=== PATIENT | female | born 1995 | race Caucasian/White ===

== ENCOUNTER 2018-12-11 12:52 | Emergency (ER) | payer MEDICAID ==
[~2018-12-11] VITALS: Ht 165.1 cm; Wt 68.0 kg
[2018-12-11 12:58] VITALS: BP 108/67
[2018-12-11] MEDS ORDERED: acetaminophen 325mg tablet PO ONE (14:10)
[2018-12-11] MEDS ORDERED: amoxicillin 250mg capsule PO ONE (14:10)
[2018-12-11] MEDS ORDERED: AMOX500C2 PO (14:13)
== END 2018-12-11 14:24 | disposition home or self-care (01) ==
LOC: ER 12:53
DX: K08.89 Other specified disorders of teeth and supporting structures (principal); Z79.899 Other long term (current) drug therapy
CPT/HCPCS: 99283

== ENCOUNTER 2018-12-31 04:33 | Inpatient (IN) | payer MEDICAID ==
[~2018-12-31] VITALS: Ht 165.1 cm; Wt 68.0 kg
[~2018-12-31 04:33] MED LIST: AMOX500C2 PO
[2018-12-31] MEDS ORDERED: normal saline 1000ML IV soln IV ONE (04:40)
[2018-12-31 05:28] LABS: BASOPHILS % (AUTO) 0.1 % (0-1); EOSINOPHILS # (AUTO) 0.7 X10'3 (0-0.9); EOSINOPHILS % (AUTO) 3.3 % (0-6); HEMATOCRIT 39.5 % (35.0-45.0); LYMPHOCYTES # (AUTO) 0.9 X10'3 (1.1-4.8); LYMPHOCYTES % (AUTO) 4.7 % (21-51); MEAN CORPUSCULAR VOLUME 96.8 FL (78-98); MEAN PLATELET VOLUME 8.9 FL (7.4-10.4); MONOCYTES # (AUTO) 0.7 X10'3 (0-0.9); MONOCYTES % (AUTO) 3.6 % (2-12); NEUTROPHILS # (AUTO) 17.3 X10'3 (1.8-7.7); NEUTROPHILS % (AUTO) 88.3 % (42-75); PLATELET COUNT 217 X10'3 (140-440); RED BLOOD COUNT 4.08 X10'6 (4.20-5.60); RED CELL DISTRIBUTION WIDTH 12.6 % (11.5-14.5); WHITE BLOOD COUNT 19.6 X10'3 (4.5-11.0)
--- NOTE | 2018-12-31 05:30 | NUR ---
PER MD GROSS- PT TITRATED DOWN ON - SHE IS CURRENTLY ON N\C @4LPM WITH O2 OF 94% PER MD FAIRBANKS, PT GIVEN INCINTIVE SPIROMETER AND EDUCATED ON HOW AND WHEN TO USE IT. SHE IS ABLE TO DO A RETURN DEMONSTRATION. FLUTTER VALVE HAS ALSO BEEN ORDERED THRU RT.
[2018-12-31] MEDS ORDERED: PREN1TAB75 PO (05:34)
[2018-12-31] MEDS ORDERED: LAMO100T89 PO (05:34)
[2018-12-31 05:36] LABS: ALANINE AMINOTRANSFERASE 14 U/L (12-78); ALBUMIN 2.5 G/DL (3.4-5.0); ALBUMIN/GLOBULIN RATIO 0.8 (1.1-1.5); ALKALINE PHOSPHATASE 44 IU/L (46-116); ANION GAP 10 (8-16); ASPARTATE AMINO TRANSFERASE 9 U/L (10-37); BILIRUBIN,TOTAL 0.3 MG/DL (0.1-1.0); BLOOD UREA NITROGEN 10 MG/DL (7-18); BUN/CREATININE RATIO 12.3 (6.6-38.0); CALCIUM 7.3 MG/DL (8.5-10.1); CHLORIDE 108 MMOL/L (99-107); CREATININE 0.81 MG/DL (0.40-0.90); GLUCOSE 113 MG/DL (70-104); MAGNESIUM 1.3 MG/DL (1.5-2.4); POTASSIUM 3.7 MMOL/L (3.5-5.1); SODIUM 139 MMOL/L (135-145); TOTAL CARBON DIOXIDE 21.1 MMOL/L (24-32); TOTAL PROTEIN 5.5 G/DL (6.4-8.2); eGFR 88 ML/MIN
[2018-12-31 05:43] LABS: INR 1.4 INR; PARTIAL THROMBOPLASTIN TIME 35 SECONDS (22-32); PROTHROMBIN TIME 14.4 SECONDS (9.0-12.0)
[2018-12-31] MEDS ORDERED: magnesium hydroxide 30ml (MOM) UD suspension PO PRN (05:50)
[2018-12-31] MEDS ORDERED: potassium Cl 20 mEq SR tablet PO PRN (05:50)
[2018-12-31] MEDS ORDERED: acetaminophen 325mg tablet PO PRN (05:50)
[2018-12-31] MEDS ORDERED: magnesium 2GM in 50ml NS 50 ML IV PRN (05:50)
[2018-12-31] MEDS ORDERED: magnesium 4gm in 100ml NS 100 ML IV PRN (05:50)
[2018-12-31] MEDS ORDERED: potassium Cl 40MEQ/NS 500ml 500 ML IV PRN ×2 (05:50)
[2018-12-31] MEDS ORDERED: magnesium Cl slow-release 64mg tablet PO PRN (05:50)
[2018-12-31] MEDS ORDERED: mag hydrox/Alum hydrox/simeth 30ml oral suspension PO PRN (05:50)
[2018-12-31] MEDS ORDERED: ondansetron/PF 4mg/2ml inj IV PRN (05:50)
[2018-12-31] MEDS ORDERED: ipratropium/albuterol 3ml nebule NEB PRN (05:50)
[2018-12-31] MEDS ORDERED: guaiFENesin 200 MG/10 ML oral syrup UD cup PO PRN (05:50)
[2018-12-31 06:48] LABS: NUCLEATED RED BLOOD CELLS 10 /100WBC (0-0); PLATELET ESTIMATE NORMAL; TOTAL CELLS COUNTED 100
[2018-12-31] MEDS: normal saline 1000ml 1,000 ML IV SCH ×2 (07:32→16:24)
[2018-12-31] MEDS: ipratropium/albuterol 3ml nebule NEB SCH ×3 (08:00→20:56)
[2018-12-31] MEDS ORDERED: CefTRIAXone 2gm/D5W 50ml 50 ML IV SCH (08:00)
[2018-12-31] MEDS: K and/or MAG REPLACEMENT MC SCH (08:00)
[2018-12-31] MEDS: PNV NO.63/IRON,CARBONYL/FA/DHA 1 EACH CAPSULE PO SCH (08:05)
[2018-12-31] MEDS: levoFLOXACIN-Levaquin 750MG/D5 150 ML IV SCH (08:13)
[2018-12-31] MEDS: CefTRIAXone/D5W-Rocephin 1gm 50 ML IV SCH (08:47)
[2018-12-31] MEDS: enoxaparin 40mg/0.4ml syringe SQ SCH (08:47)
[2018-12-31] MEDS: lactobacillus rhamnosus 10,000 MMU CELLS/CAPSULE PO SCH ×2 (08:48→19:58)
[2018-12-31] MEDS: guaiFENesin ER 600mg tablet PO SCH ×2 (08:48→19:58)
[2018-12-31] MEDS: lamoTRIgine 100mg tablet PO SCH ×2 (08:48→19:58)
[2018-12-31 10:00] VITALS: BP 101/54
--- NOTE | 2018-12-31 10:00 | NUR ---
Assumed pt care IVJ
[2018-12-31 11:11] VITALS: BP 94/50
[2018-12-31] MEDS: vancomycin/NS 1 GM ADD-VANTAGE 250 ML IV SCH ×2 (11:55→19:49)
[2018-12-31 12:56] LABS: URINE HCG NEGATIVE (NEG)
[2018-12-31 12:57] LABS: CLARITY,URINE CLEAR (Clear); COLOR,URINE YELLOW (Yellow); GLUCOSE, URINE >=1000 mg/dl (Neg); KETONES,URINE NEGATIVE (Neg); LEUKOCYTE ESTERASE ,URINE NEGATIVE (Neg); NITRITES, URINE NEGATIVE (Neg); OCCULT BLOOD,URINE NEGATIVE (Neg); PROTEIN,URINE NEGATIVE (Neg); UROBILINOGEN,URINE 0.2 E.U/dL (0.2-1.0)
[2018-12-31 12:58] LABS: UA COLLECTION TYPE CLN CATCH MIDSTREAM
[2018-12-31 13:04] LABS: SQUAMOUS EPITHELIAL CELL,UR MANY /LPF (FEW)
[2018-12-31 13:05] LABS: BACTERIA,URINE FEW /HPF (Neg); RBC,URINE NONE SEEN /HPF (0-2); WBC,URINE 0-4 /HPF (0-4)
[2018-12-31 15:15] VITALS: BP 97/46
[2018-12-31 18:00] VITALS: BP 104/58
--- NOTE | 2018-12-31 18:09 | NUR ---
Patient in room PCU 3028. I have received report from Renae ZUNIGA and had the opportunity to ask questions and assume patient care. pt eating dinner, [id number]
[2018-12-31 23:00] VITALS: BP 106/65
[2018-12-31] MEDS: acetaminophen 325mg tablet PO PRN (23:33)
[2019-01-01] MEDS: Melatonin 3mg tablet PO PRN ×2 (00:23→23:52)
[2019-01-01] MEDS: vancomycin/NS 1 GM ADD-VANTAGE 250 ML IV SCH ×2 (01:26→10:24)
[2019-01-01] MEDS: normal saline 1000ml 1,000 ML IV SCH ×3 (01:26→21:48)
[2019-01-01 03:00] VITALS: BP 110/55
[2019-01-01 05:58] LABS: BASOPHILS % (AUTO) 0.1 % (0-1); EOSINOPHILS # (AUTO) 1.3 X10'3 (0-0.9); HEMATOCRIT 33.2 % (35.0-45.0); HEMOGLOBIN 10.9 g/dl (12.0-16.0); LYMPHOCYTES # (AUTO) 1.8 X10'3 (1.1-4.8); LYMPHOCYTES % (AUTO) 10.8 % (21-51); MEAN CORPUSCULAR HEMOGLOBIN 32.2 PG (27.0-31.0); MEAN CORPUSCULAR HGB CONC 32.8 g/dL (33.0-36.5); MEAN CORPUSCULAR VOLUME 97.9 FL (78-98); MEAN PLATELET VOLUME 8.6 FL (7.4-10.4); MONOCYTES # (AUTO) 1.4 X10'3 (0-0.9); MONOCYTES % (AUTO) 8.5 % (2-12); NEUTROPHILS % (AUTO) 72.6 % (42-75); PLATELET COUNT 183 X10'3 (140-440); RED BLOOD COUNT 3.39 X10'6 (4.20-5.60); RED CELL DISTRIBUTION WIDTH 12.9 % (11.5-14.5); WHITE BLOOD COUNT 16.5 X10'3 (4.5-11.0)
[2019-01-01 06:03] LABS: ALBUMIN 2.5 G/DL (3.4-5.0); ANION GAP 6 (8-16); BLOOD UREA NITROGEN 7 MG/DL (7-18); BUN/CREATININE RATIO 9.5 (6.6-38.0); CALCIUM 8.1 MG/DL (8.5-10.1); CHLORIDE 111 MMOL/L (99-107); CREATININE 0.74 MG/DL (0.40-0.90); GLUCOSE 112 MG/DL (70-104); MAGNESIUM 1.8 MG/DL (1.5-2.4); POTASSIUM 3.6 MMOL/L (3.5-5.1); SODIUM 144 MMOL/L (135-145); TOTAL CARBON DIOXIDE 26.6 MMOL/L (24-32); eGFR > 90 ML/MIN
--- NOTE | 2019-01-01 06:29 | NUR ---
Patient in room PCU 3028. I have received report from [facility] and had the opportunity to ask questions and assume patient care.
[2019-01-01 06:30] VITALS: BP 104/69
--- NOTE | 2019-01-01 06:36 | NUR ---
Problems reprioritized. Patient report given, questions answered & plan of care reviewed with Fauzia ZUNIGA.
[2019-01-01] MEDS: K and/or MAG REPLACEMENT MC SCH (07:08)
[2019-01-01] MEDS: CefTRIAXone/D5W-Rocephin 1gm 50 ML IV SCH (07:09)
[2019-01-01] MEDS: levoFLOXACIN-Levaquin 750MG/D5 150 ML IV SCH (07:10)
[2019-01-01] MEDS: guaiFENesin ER 600mg tablet PO SCH ×2 (07:10→19:28)
[2019-01-01] MEDS: lactobacillus rhamnosus 10,000 MMU CELLS/CAPSULE PO SCH ×2 (07:10→19:28)
[2019-01-01] MEDS: PNV NO.63/IRON,CARBONYL/FA/DHA 1 EACH CAPSULE PO SCH (07:10)
[2019-01-01] MEDS: lamoTRIgine 100mg tablet PO SCH ×2 (07:10→19:28)
[2019-01-01] MEDS: enoxaparin 40mg/0.4ml syringe SQ SCH (07:10)
[2019-01-01] MEDS: ipratropium/albuterol 3ml nebule NEB SCH ×3 (08:46→20:25)
[2019-01-01] MEDS ORDERED: VANCOMYCIN LEVEL IV ONE (09:30)
[2019-01-01 11:30] VITALS: BP 102/56
[2019-01-01 15:30] VITALS: BP 124/55
[2019-01-01] MEDS: acetaminophen 325mg tablet PO PRN ×2 (16:01→23:46)
[2019-01-01] MEDS: vancomycin inj 1,250 MG in NS 250ml IV soln IV SCH (17:26)
[2019-01-01 18:00] VITALS: BP 108/66
--- NOTE | 2019-01-01 18:06 | NUR ---
Problems reprioritized. Patient report given, questions answered & plan of care reviewed with Gale.
--- NOTE | 2019-01-01 18:17 | NUR ---
Patient in room PCU 3028. I have received report from Fauzia ZUNIGA and had the opportunity to ask questions and assume patient care. pt eating dinner, AAO
[2019-01-01 23:00] VITALS: BP 101/48
[2019-01-02] MEDS: vancomycin inj 1,250 MG in NS 250ml IV soln IV SCH ×3 (01:22→19:09)
[2019-01-02 03:00] VITALS: BP 104/58
[2019-01-02 06:00] VITALS: BP 122/76
--- NOTE | 2019-01-02 06:22 | NUR ---
Patient in room PCU 3028. I have received report from NADIA Beasley and had the opportunity to ask questions and assume patient care. Pt sleeping, RR WNL, even, unlabored. No signs of distress.
--- NOTE | 2019-01-02 06:31 | NUR ---
Problems reprioritized. Patient report given, questions answered & plan of care reviewed with ROLY ZUNIGA.
[2019-01-02 06:42] LABS: BASOPHILS % (AUTO) 0.1 % (0-1); EOSINOPHILS # (AUTO) 1.2 X10'3 (0-0.9); EOSINOPHILS % (AUTO) 10.7 % (0-6); HEMATOCRIT 32.9 % (35.0-45.0); HEMOGLOBIN 11.1 g/dl (12.0-16.0); LYMPHOCYTES # (AUTO) 2.3 X10'3 (1.1-4.8); MEAN CORPUSCULAR HEMOGLOBIN 32.5 PG (27.0-31.0); MEAN CORPUSCULAR HGB CONC 33.8 g/dL (33.0-36.5); MEAN CORPUSCULAR VOLUME 96.1 FL (78-98); MEAN PLATELET VOLUME 8.5 FL (7.4-10.4); MONOCYTES # (AUTO) 1.1 X10'3 (0-0.9); MONOCYTES % (AUTO) 9.6 % (2-12); NEUTROPHILS # (AUTO) 6.5 X10'3 (1.8-7.7); NEUTROPHILS % (AUTO) 58.6 % (42-75); PLATELET COUNT 199 X10'3 (140-440); RED BLOOD COUNT 3.42 X10'6 (4.20-5.60); WHITE BLOOD COUNT 11.1 X10'3 (4.5-11.0)
[2019-01-02 06:50] LABS: ALBUMIN 2.5 G/DL (3.4-5.0); ANION GAP 6 (8-16); BLOOD UREA NITROGEN 9 MG/DL (7-18); CALCIUM 8.3 MG/DL (8.5-10.1); CHLORIDE 108 MMOL/L (99-107); CREATININE 0.75 MG/DL (0.40-0.90); GLUCOSE 93 MG/DL (70-104); MAGNESIUM 1.6 MG/DL (1.5-2.4); POTASSIUM 3.4 MMOL/L (3.5-5.1); SODIUM 142 MMOL/L (135-145); TOTAL CARBON DIOXIDE 27.6 MMOL/L (24-32); eGFR > 90 ML/MIN
[2019-01-02] MEDS: levoFLOXACIN-Levaquin 750MG/D5 150 ML IV SCH (07:21)
[2019-01-02] MEDS: acetaminophen 325mg tablet PO PRN ×3 (07:27→21:28)
[2019-01-02] MEDS: ipratropium/albuterol 3ml nebule NEB SCH ×3 (07:45→21:33)
[2019-01-02] MEDS: K and/or MAG REPLACEMENT MC SCH (08:00)
--- NOTE | 2019-01-02 08:37 | NUR ---
PAGER ID: [phone] MESSAGE: [phone] Brandon Patrick HR sustaining 130s x20 minutes. Please advise. NADIA Howard #[id number]
[2019-01-02] MEDS: lactobacillus rhamnosus 10,000 MMU CELLS/CAPSULE PO SCH ×2 (08:45→19:10)
[2019-01-02] MEDS: PNV NO.63/IRON,CARBONYL/FA/DHA 1 EACH CAPSULE PO SCH (08:45)
[2019-01-02] MEDS: potassium Cl 20 mEq SR tablet PO PRN ×3 (08:45→19:11)
[2019-01-02] MEDS: enoxaparin 40mg/0.4ml syringe SQ SCH (08:46)
[2019-01-02] MEDS: guaiFENesin ER 600mg tablet PO SCH ×2 (08:46→19:11)
[2019-01-02] MEDS: lamoTRIgine 100mg tablet PO SCH ×2 (08:46→19:11)
[2019-01-02] MEDS ORDERED: propranolol 10mg tablet PO ONE (09:30)
[2019-01-02] MEDS ORDERED: iohexol 350MG/ML 100ml bottle IV ONE (12:36)
--- NOTE | 2019-01-02 12:41 | NUR ---
Pt transported to CT in stable condition via WC with NC @ 1L/min. Off floor at this time.
[2019-01-02] MEDS: lactose-reduced food (Ensure Enlive) - 237ml bottle PO SCH ×2 (13:00→18:00)
--- NOTE | 2019-01-02 13:00 | NUR ---
Pt returned to unit at this time, stable condition. Denies complaint. Bed is low/locked/SRx2, call light in reach. Will continue to monitor.
[2019-01-02] MEDS: normal saline 1000ml 1,000 ML IV SCH ×2 (13:28→17:48)
--- NOTE | 2019-01-02 14:45 | NUR ---
Pt moved from 3028A to 3013A per pt request due to roommate incompatibility in 3028. Pt states new room is an improvement, no further needs at this time. Bed linens changed. Bed is low/locked/SRx2, call light in reach. Will continue to monitor.
[2019-01-02 15:00] VITALS: BP 112/75
--- NOTE | 2019-01-02 17:00 | NUR ---
Pt SpO2 85-89% on room air, unable to maintain over that level, NC applied @1L/min, pt SpO2 up to 95%. Will notified NOC RN and see if patient can wean off O2 over the mine shifter.
[2019-01-02] MEDS ORDERED: VANCOMYCIN LEVEL IV ONE (17:30)
[2019-01-02 18:00] VITALS: BP 110/64
--- NOTE | 2019-01-02 18:19 | NUR ---
Problems reprioritized. Patient report given, questions answered & plan of care reviewed with NADIA Beasley.
[2019-01-02] MEDS: propranolol 10mg tablet PO SCH (19:17)
[2019-01-02] MEDS: Melatonin 3mg tablet PO PRN (21:28)
[2019-01-02 23:00] VITALS: BP 121/67
[2019-01-03] MEDS: vancomycin inj 1,250 MG in NS 250ml IV soln IV SCH ×2 (01:16→10:00)
[2019-01-03 03:00] VITALS: BP 105/63
[2019-01-03] MEDS ORDERED: potassium Cl 40MEQ/NS 500ml 500 ML IV PRN ×2 (04:10)
[2019-01-03] MEDS ORDERED: potassium Cl 20 mEq SR tablet PO PRN ×2 (04:10)
[2019-01-03 06:00] VITALS: BP 109/67
--- NOTE | 2019-01-03 06:12 | NUR ---
Problems reprioritized. Patient report given, questions answered & plan of care reviewed with Yanira ZUNIGA.
--- NOTE | 2019-01-03 06:31 | NUR ---
Patient in room PCU 3013. I have received report from NADIA PULLIAM and had the opportunity to ask questions and assume patient care.
[2019-01-03 06:34] LABS: BASOPHILS % (AUTO) 0.1 % (0-1); EOSINOPHILS # (AUTO) 1.7 X10'3 (0-0.9); EOSINOPHILS % (AUTO) 15.5 % (0-6); HEMATOCRIT 37.4 % (35.0-45.0); HEMOGLOBIN 12.4 g/dl (12.0-16.0); LYMPHOCYTES # (AUTO) 2.8 X10'3 (1.1-4.8); LYMPHOCYTES % (AUTO) 24.7 % (21-51); MEAN CORPUSCULAR VOLUME 96.9 FL (78-98); MEAN PLATELET VOLUME 8.4 FL (7.4-10.4); MONOCYTES % (AUTO) 9.1 % (2-12); NEUTROPHILS # (AUTO) 5.7 X10'3 (1.8-7.7); NEUTROPHILS % (AUTO) 50.6 % (42-75); PLATELET COUNT 252 X10'3 (140-440); RED BLOOD COUNT 3.86 X10'6 (4.20-5.60); RED CELL DISTRIBUTION WIDTH 12.8 % (11.5-14.5); WHITE BLOOD COUNT 11.3 X10'3 (4.5-11.0)
[2019-01-03 06:44] LABS: ALBUMIN 2.7 G/DL (3.4-5.0); ANION GAP 7 (8-16); BLOOD UREA NITROGEN 8 MG/DL (7-18); BUN/CREATININE RATIO 9.8 (6.6-38.0); CHLORIDE 105 MMOL/L (99-107); CREATININE 0.82 MG/DL (0.40-0.90); GLUCOSE 90 MG/DL (70-104); MAGNESIUM 1.7 MG/DL (1.5-2.4); POTASSIUM 3.9 MMOL/L (3.5-5.1); SODIUM 139 MMOL/L (135-145); TOTAL CARBON DIOXIDE 27.1 MMOL/L (24-32); eGFR 86 ML/MIN
[2019-01-03] MEDS: K and/or MAG REPLACEMENT MC SCH (08:00)
[2019-01-03] MEDS: lamoTRIgine 100mg tablet PO SCH (08:16)
[2019-01-03] MEDS: guaiFENesin ER 600mg tablet PO SCH (08:17)
[2019-01-03] MEDS: propranolol 10mg tablet PO SCH (08:17)
[2019-01-03] MEDS: lactobacillus rhamnosus 10,000 MMU CELLS/CAPSULE PO SCH (08:17)
[2019-01-03] MEDS: enoxaparin 40mg/0.4ml syringe SQ SCH (08:18)
[2019-01-03] MEDS: lactose-reduced food (Ensure Enlive) - 237ml bottle PO SCH (08:19)
[2019-01-03] MEDS: PNV NO.63/IRON,CARBONYL/FA/DHA 1 EACH CAPSULE PO SCH (09:14)
[2019-01-03] MEDS: ipratropium/albuterol 3ml nebule NEB SCH (09:35)
[2019-01-03] MEDS ORDERED: LEVO750T46 PO (09:41)
[2019-01-03] MEDS ORDERED: LACT1CAP26 PO (09:41)
[2019-01-03] MEDS ORDERED: GUAI100L97 PO (09:41)
[2019-01-03] MEDS ORDERED: PROP10TA10 PO (09:41)
[2019-01-03] MEDS ORDERED: ALBU8.5H8 IH (09:41)
[2019-01-03] MEDS ORDERED: MELA3TAB PO (09:41)
--- NOTE | 2019-01-03 10:29 | NUR ---
Patient has dc instructions ready but would like to wait for her mother (who will be her transport home) to return before discussing discharge instructions. Patient also requesting to have shower now. Will DC when mother arrives.
[2019-01-03] MEDS ORDERED: levoFLOXACIN 750MG TABLET PO SCH (11:00)
--- NOTE | 2019-01-03 11:19 | NUR ---
Discussed with patient and her mother discharge instructions and new prescriptions. Both verbalized understanding of teachings. Patient also state she will go back to [facility] to finish her rehabilitation because she would like to have custody of her 2 year old daughter again. Patient ready for dc and has all her belongings packed however she has not taken her shower yet and requested to have shower prior to dc. Patient in shower now.
--- NOTE | 2019-01-03 11:41 | NUR ---
Patient A&O and in no apparent distress. She is being dc'd with all personal belongings in a wheelchair accompanied by x1 staff and mother. Prescriptions called in to [facility] [address].
== END 2019-01-03 11:40 | disposition home or self-care (01) | DRG 720 ==
LOC: ER 04:33 → ED HOLD 05:48 → EDBEDREQ 08:54 → PCU 3S 10:18
PROVIDERS: ADMIT Hospitalist; ATTEND Family Medicine
DX: A41.9 Sepsis, unspecified organism (principal); J18.1 Lobar pneumonia, unspecified organism; F17.210 Nicotine dependence, cigarettes, uncomplicated; F41.9 Anxiety disorder, unspecified; G40.909 Epilepsy, unspecified, not intractable, without status epilepticus; F19.10 Other psychoactive substance abuse, uncomplicated; G47.00 Insomnia, unspecified; Z71.6 Tobacco abuse counseling; Z79.899 Other long term (current) drug therapy; Z79.2 Long term (current) use of antibiotics; Z80.3 Family history of malignant neoplasm of breast
CPT/HCPCS: 36415; 71045; 71275; 80048; 80053; 80202; 81001; 81025; 83605; 83735; 84145; 85025; 85610; 85730; 87040; 87070; 93005; 93306; 94640; 94760; 99285; G0378; J0696; J1650; J1956; J3370; J7030; Q9967

== ENCOUNTER 2021-02-06 10:18 | Emergency (ER) | payer MEDICAID ==
[~2021-02-06] VITALS: Ht 165.1 cm; Wt 65.0 kg
[~2021-02-06 10:18] MED LIST changes: +ALBU8.5H8 IH; -AMOX500C2 PO; +GUAI100L97 PO; +LACT1CAP26 PO; +LAMO100T PO; +LEVO750T46 PO; +MELA3TAB39 PO; +PREN1TAB75 PO; +PROP10TA10 PO
[2021-02-06 10:25] VITALS: BP 129/68
[2021-02-06] MEDS ORDERED: CLIN300C70 PO (10:56)
[2021-02-06] MEDS ORDERED: IBUP-1984 PO (10:56)
== END 2021-02-06 11:10 | disposition home or self-care (01) ==
LOC: ER 10:18
DX: K08.89 Other specified disorders of teeth and supporting structures (principal); M25.562 Pain in left knee; Z86.69 Personal history of other diseases of the nervous system and sense organs; Z79.899 Other long term (current) drug therapy
CPT/HCPCS: 99283

== ENCOUNTER 2021-02-24 08:37 | Emergency (ER) | payer MEDICAID ==
[~2021-02-24] VITALS: Ht 165.1 cm; Wt 69.5 kg
[2021-02-24] MEDS ORDERED: METH4TAB81 PO (09:04)
[2021-02-24] MEDS ORDERED: HYDR-3965 PO (09:04)
[2021-02-24] MEDS ORDERED: AMOX500C2 PO (09:04)
[2021-02-24] MEDS ORDERED: ONDA4TAB6 PO (09:04)
[2021-02-24] MEDS ORDERED: acetaminophen 325mg tablet PO ONE (09:05)
[2021-02-24 09:25] VITALS: BP 112/74
== END 2021-02-24 09:31 | disposition home or self-care (01) ==
LOC: ER 08:38
DX: K04.7 Periapical abscess without sinus (principal); K02.9 Dental caries, unspecified; K04.1 Necrosis of pulp; Z86.69 Personal history of other diseases of the nervous system and sense organs; Z79.899 Other long term (current) drug therapy
CPT/HCPCS: 99283

== ENCOUNTER 2021-07-04 09:47 | Emergency (ER) | payer MEDICAID ==
[~2021-07-04] VITALS: Ht 165.1 cm; Wt 77.3 kg
[~2021-07-04 09:47] MED LIST changes: +ALBU8.5H17 IH; -ALBU8.5H8 IH; +METH4TAB81 PO; +ONDA4TAB6 PO
[2021-07-04 09:54] VITALS: BP 128/82
--- NOTE | 2021-07-04 10:34 | NUR ---
Patient seen and assessed by provider.
== END 2021-07-04 10:34 | disposition home or self-care (01) ==
LOC: ER 09:48
DX: R05.9 Cough, unspecified (principal); R50.9 Fever, unspecified; M79.10 Myalgia, unspecified site; Z20.822 Contact with and (suspected) exposure to COVID-19; Z88.8 Allergy status to other drugs, medicaments and biological substances; Z91.018 Allergy to other foods
CPT/HCPCS: 36415; 99283; U0003; U0005

== ENCOUNTER 2021-07-18 14:32 | Emergency (ER) | payer MEDICAID ==
[~2021-07-18] VITALS: Ht 165.1 cm; Wt 80.3 kg
[2021-07-18 14:50] VITALS: BP 143/75
[2021-07-18 15:18] LABS: CLARITY,URINE CLOUDY (Clear); COLOR,URINE YELLOW (Yellow); GLUCOSE, URINE NEGATIVE (Neg); KETONES,URINE NEGATIVE (Neg); PH,URINE 7.5 (4.8-8.0); PROTEIN,URINE NEGATIVE (Neg); UA COLLECTION TYPE CLN CATCH MIDSTREAM
[2021-07-18 15:19] LABS: LEUKOCYTE ESTERASE ,URINE NEGATIVE (Neg); NITRITES, URINE NEGATIVE (Neg); OCCULT BLOOD,URINE NEGATIVE (Neg); URINE HCG NEGATIVE (NEG); UROBILINOGEN,URINE 0.2 E.U/dL (0.2-1.0)
[2021-07-18 15:29] LABS: WBC,URINE NONE SEEN /HPF (0-4)
[2021-07-18 15:30] LABS: AMORPHOUS PHOSPHATES 3+; BACTERIA,URINE NONE SEEN /HPF (Neg); MUCUS STRANDS MANY /LPF (Neg); RBC,URINE NONE SEEN /HPF (0-2); SQUAMOUS EPITHELIAL CELL,UR MANY /LPF (FEW)
[2021-07-18] MEDS ORDERED: CYCL-1 PO (16:19)
[2021-07-18] MEDS ORDERED: NAPR-56 PO (16:19)
== END 2021-07-18 17:01 | disposition home or self-care (01) ==
LOC: ER 14:33
DX: S39.012A Strain of muscle, fascia and tendon of lower back, initial encounter (principal); Z86.69 Personal history of other diseases of the nervous system and sense organs; Z91.018 Allergy to other foods; Z79.2 Long term (current) use of antibiotics; Z79.899 Other long term (current) drug therapy; X58.XXXA Exposure to other specified factors, initial encounter; Y93.89 Activity, other specified; Y92.89 Other specified places as the place of occurrence of the external cause; Y99.8 Other external cause status
CPT/HCPCS: 81001; 81025; 99283

== ENCOUNTER 2023-12-03 13:04 | Emergency (ER) | payer MEDICAID ==
[~2023-12-03] VITALS: Ht 165.1 cm; Wt 76.8 kg
[~2023-12-03 13:04] MED LIST changes: +CYCL-1 PO; -LEVO750T46 PO; +LEVO750T68 PO
[2023-12-03] MEDS: dexamethasone sod phosphate 10mg/ml inj IV STA (19:07)
[2023-12-03] MEDS: ketorolac trometh inj. 60 MG/2 ML VIAL IM ONE (19:08)
[2023-12-03] MEDS: dexamethasone sod phosphate 10mg/ml inj IM STA (19:08)
[2023-12-03] MEDS: ketorolac tromethamine 15mg/ml inj. IV ONE (19:08)
[2023-12-03 21:36] LABS: BASOPHILS % (AUTO) 0.2 % (0-1); EOSINOPHILS # (AUTO) 0.2 X10'3 (0-0.9); EOSINOPHILS % (AUTO) 1.3 % (0-6); HEMATOCRIT 39.7 % (35.0-45.0); HEMOGLOBIN 13.4 g/dl (12.0-16.0); LYMPHOCYTES # (AUTO) 1.7 X10'3 (1.1-4.8); LYMPHOCYTES % (AUTO) 12.2 % (21-51); MEAN CORPUSCULAR HEMOGLOBIN 33.1 PG (27.0-31.0); MEAN CORPUSCULAR HGB CONC 33.7 g/dL (33.0-36.5); MEAN CORPUSCULAR VOLUME 98.2 FL (78-98); MEAN PLATELET VOLUME 8.8 FL (7.4-10.4); MONOCYTES # (AUTO) 0.2 X10'3 (0-0.9); MONOCYTES % (AUTO) 1.6 % (2-12); NEUTROPHILS # (AUTO) 11.9 X10'3 (1.8-7.7); NEUTROPHILS % (AUTO) 84.7 % (42-75); PLATELET COUNT 233 X10'3 (140-440); RED BLOOD COUNT 4.04 X10'6 (4.20-5.60); RED CELL DISTRIBUTION WIDTH 12.8 % (11.5-14.5)
[2023-12-03 21:48] LABS: APTT 27 SECONDS (22-32); PROTHROMBIN TIME 10.6 SECONDS (9.0-12.0)
[2023-12-03 21:50] LABS: ALANINE AMINOTRANSFERASE 27 U/L (12-78); ALBUMIN/GLOBULIN RATIO 1.2 (1.1-1.5); ALKALINE PHOSPHATASE 72 IU/L (46-116); ANION GAP 12 (8-16); ASPARTATE AMINO TRANSFERASE 19 U/L (10-37); BILIRUBIN,TOTAL 0.3 MG/DL (0.1-1.0); BLOOD UREA NITROGEN 12 MG/DL (7-18); C-REACTIVE PROTEIN 0.05 MG/DL (0.0-0.5); CALCIUM 8.5 MG/DL (8.5-10.1); CHLORIDE 106 MMOL/L (99-107); CREATININE 0.92 MG/DL (0.40-0.90); GLUCOSE 109 MG/DL (70-104); POTASSIUM 3.9 MMOL/L (3.5-5.1); SODIUM 143 MMOL/L (135-145); TOTAL CARBON DIOXIDE 25.1 MMOL/L (24-32); TOTAL PROTEIN 7.4 G/DL (6.4-8.2); eCRCL 82 ML/MIN; eGFR 73 ML/MIN
[2023-12-03] MEDS: morphine 10mg/ml inj. IV ONE (22:26)
[2023-12-03] MEDS: ondansetron/PF 4mg/2ml inj IV ONE (22:35)
[2023-12-03] MEDS: morphine 4 MG/ML inj SYRINge IV ONE (22:36)
[2023-12-03] MEDS: morphine 2 MG/ML inj. syringe IV ONE (22:36)
[2023-12-03 23:27] LABS: HCG SERUM QL NEGATIVE
[2023-12-04] MEDS: traZODone 50mg tablet PO ONE (00:16)
[2023-12-04] MEDS: cyclobenzaprine 10mg tablet PO ONE (00:16)
[2023-12-04] MEDS: diphenhydrAMINE 50 mg/ml inj IV ONE (00:17)
[2023-12-04 00:42] LABS: BILIRUBIN,URINE NEGATIVE (Neg); CLARITY,URINE SLIGHTLY CLOUDY (Clear); COLOR,URINE YELLOW (Yellow); GLUCOSE, URINE NEGATIVE (Neg); KETONES,URINE NEGATIVE (Neg); LEUKOCYTE ESTERASE ,URINE NEGATIVE (Neg); NITRITES, URINE NEGATIVE (Neg); OCCULT BLOOD,URINE NEGATIVE (Neg); PH,URINE 7.5 (4.8-8.0); PROTEIN,URINE NEGATIVE (Neg)
[2023-12-04 00:45] LABS: UA COLLECTION TYPE CLN CATCH MIDSTREAM
[2023-12-04 00:48] LABS: BACTERIA,URINE 1+ /HPF (Neg); WBC,URINE 0-4 /HPF (0-4)
[2023-12-04 00:49] LABS: AMORPHOUS PHOSPHATES 1+; MUCUS STRANDS FEW /LPF (Neg); RENAL CELLS, URINE FEW /HPF; SQUAMOUS EPITHELIAL CELL,UR MANY /LPF (FEW); TRANSITIONAL EPI CELLS,URINE FEW /HPF
[2023-12-04 01:01] LABS: URINE AMPHETAMINE SCREEN NEGATIVE (Neg); URINE BARBITUATE SCREEN NEGATIVE (Neg); URINE BENZODIAZEPINES SCREEN NEGATIVE (Neg); URINE CANNABINOID SCREEN NEGATIVE (Neg); URINE COCAINE SCREEN NEGATIVE (Neg); URINE METHADONE SCREEN NEGATIVE (Neg); URINE OPIATE SCREEN POSITIVE (Neg); URINE PHENCYCLIDINE SCREEN NEGATIVE (Neg)
[2023-12-04] MEDS: normal saline 1000ML IV soln IVB ONE (02:30)
[2023-12-04 07:08] VITALS: TEMP 98.6
[2023-12-04] MEDS ORDERED: GADOTERATE MEGLUMINE 7.5 MMOL/15 ML VIAL IV ONE (11:17)
[2023-12-04] MEDS: morphine 2 MG/ML inj. syringe IV ONE (15:26)
[2023-12-04 21:25] VITALS: BP 112/70; PULSE 78; RESP 16; O2SAT 99
== END 2023-12-04 21:27 | disposition short-term general hospital (02) ==
LOC: ER 13:04
DX: R20.0 Anesthesia of skin (principal); M54.50 Low back pain, unspecified; R53.1 Weakness; Z20.822 Contact with and (suspected) exposure to COVID-19; R33.9 Retention of urine, unspecified; Z79.899 Other long term (current) drug therapy; Z91.018 Allergy to other foods
CPT/HCPCS: 36415; 70553; 72141; 72146; 72148; 72195; 80053; 80305; 81001; 83605; 84145; 84703; 85025; 85610; 85651; 85730; 86140; 87811; 96361; 96374; 96375; 96376; 99291; 99292; A9575; J1100; J1200; J1885; J2270; J2405; J7030; 99285